=== PATIENT | female | born 1995 | race Two or more races ===

== ENCOUNTER 2023-06-21 21:43 | Emergency (ER) | payer OTHER ==
[~2023-06-21] VITALS: Ht 157.5 cm; Wt 77.1 kg
[2023-06-22] MEDS ORDERED: KETOROLAC TROMETHAMINE 10 MG TABLET PO STA (00:33)
[2023-06-22] MEDS ORDERED: VALTREX1000 MG PO (00:36)
[2023-06-22] MEDS ORDERED: ZOVIRAX30 GM TOP (00:36)
[2023-06-22] MEDS ORDERED: KETO10TA2 PO (00:39)
== END 2023-06-22 00:40 ==
LOC: ER 21:44
DX: B02.9 Zoster without complications (principal)